=== PATIENT | female | born 1945 | race Caucasian/White ===

== ENCOUNTER 2016-12-03 10:44 | Emergency (ER) | payer OTHER ==
[~2016-12-03] VITALS: Ht 162.6 cm; Wt 88.9 kg
[~2016-12-03 10:44] MED LIST: ACTOS15 MG PO; CARDIZEM CD,CA120 MG PO; COUMADIN,JANTOVE5 MG PO; COUMADIN,JANTOVE6 MG PO; LANOXIN,DIGI0.125 MG PO; LOVENOX80 MG/0.8 SC; Lopressor PO; PERCOCET 5/31 TABLET PO; THERAGRAN1 TABLET PO; Vicodin,Lortab 5/500 PO
[2016-12-03 10:58] VITALS: BP 112/82
[2016-12-03] MEDS ORDERED: LO-DOSE ASPIRIN81 M2 PO (12:04)
== END 2016-12-03 12:21 | disposition home or self-care (01) ==
LOC: EME 10:44
DX: G45.9 Transient cerebral ischemic attack, unspecified (principal); E11.9 Type 2 diabetes mellitus without complications; E78.5 Hyperlipidemia, unspecified; I10 Essential (primary) hypertension; I25.2 Old myocardial infarction; Z79.01 Long term (current) use of anticoagulants; Z87.891 Personal history of nicotine dependence
CPT/HCPCS: 70450; 70551; 80048; 83036; 85025; 85610; 85730; 99281; 99283